=== PATIENT | female | born 1975 | race African-American/Black ===

== ENCOUNTER 2017-04-27 19:56 | Inpatient (IN) | payer OTHER ==
[2017-04-27 20:57] VITALS: BMI 24.1
--- NOTE | 2017-04-27 21:20 | HP ---
CIWA Score - CIWA Score Nausea/Vomitin-No Nausea/No Vomiting Muscle Tremors: 4-Moderate,w/Arms Extend Anxiety: 4-Mod. Anxious/Guarded Agitation: 4-Moderately Restless Paroxysmal Sweats: 1-Minimal Palms Moist Orientation: 0-Oriented Tacttile Disturbances: 0-None Auditory Disturbances: 1-Very Mild (self voice = good things bad things) Visual Disturbances: 0-None Headache: 1-Very Mild CIWA-Ar Total Score: 15 Admission ROS S - HPI Chief Complaint: withdrawal sx Allergies/Adverse Reactions: Allergies Allergy/AdvReac Type Severity Reaction Status Date / Time grass pollen Allergy Verified 04/27/17 21:18 History of Present Illness: 41 years old female with long history of alcohol nicotine dependence has seasonal allergy and depression is admitted to detox mass bilaterally breasts diagnosed 09/2016 will follow up with radiologist Exam Limitations: No Limitations - Ebola screening Have you traveled outside of the country in the last 21 days: No Have you had contact with anyone from an Ebola affected area: No Have you been sick,other than usual withdrawal symptoms: No Do you have a fever: No - Review of Systems Constitutional: Changes in sleep, Weight Stable EENT: reports: Cataracts (left eye born), Nose Congestion Respiratory: reports: SOB with Exertion, Productive cough (yellowish) Cardiac: reports: No Symptoms Reported GI: reports: Poor Fluid Intake, Indigestion, Abdominal cramping : reports: No Symptoms Reported Musculoskeletal: reports: Back Pain Integumentary: reports: Rash (back hands neck) Neuro: reports: Tremors Endocrine: reports: Increased Urine Hematology: reports: No Symptoms Reported Psychiatric: reports: Judgement Intact, Orientated x3, Anxious, Depressed Other Systems: Reviewed and Negative Patient History - Patient Medical History Hx Anemia: No Hx Asthma: No Hx Chronic Obstructive Pulmonary Disease (COPD): No Hx Cancer: No Hx Cardiac Disorders: No Hx Congestive Heart Failure: No Hx Hypertension: No Hx Hypercholesterolemia: No Hx Pacemaker: No HX Cerebrovascular Accident: No Hx Seizures: No Hx Dementia: No Hx Diabetes: No Hx Gastrointestinal Disorders: Yes Hx Liver Disease: No Hx Genitourinary Disorders: No Hx Sexually Transmitted Disorders: No Hx Renal Disease (ESRD): No Hx Thyroid Disease: No Hx Human Immunodeficiency Virus (HIV): No Hx Hepatitis C: No Hx Depression: Yes Hx Suicide Attempt: No Hx Bipolar Disorder: No Hx Schizophrenia: No Other Medical History: left eye born with cataract x 1 surgery = not working - Patient Surgical History Past Surgical History: No - PPD History Previous Implant?: Yes Documented Results: Negative w/o proof Implanted On Prior [facility] Admission?: No PPD to be Administered?: Yes - Reproductive History Patient is a Female of Child Bearing Age (11 -55 yrs old): Yes Last Menstrual Period: 04/27/17 Patient : No - Smoking Cessation Smoking history: Current every day smoker Have you smoked in the past 12 months: Yes Aproximately how many cigarettes per day: 20 Cigars Per Day: 0 Hx Chewing Tobacco Use: No Initiated information on smoking cessation: Yes 'Breaking Loose' booklet given: 04/27/17 - Substance & Tx. History Hx Alcohol Use: Yes Hx Substance Use: Yes Substance Use Type: Alcohol, Cocaine Hx Substance Use Treatment: No - Substances Abused Alcohol Route: Oral Frequency: Daily Amount used: 4 quarts vodka + beer 40ozx5 Age of first use: 13 Date of Last Use: 04/27/17 Cocaine Route: Inhalation Frequency: Daily Amount used: 300$ Age of first use: 19 Date of Last Use: 04/27/17 Family Disease History - Family Disease History Family Disease History: Diabetes: Father, Heart Disease: Mother, CA: Mother Admission Physical Exam BHS - Vital Signs Vital Signs: Vital Signs - 24 hr 04/27/17 20:53 Temperature 96.8 F L Pulse Rate 80 Respiratory 18 Rate Blood Pressure 130/98 - Physical General Appearance: Yes: Nourished, Appropriately Dressed, Mild Distress, Tremorous, Irritable, Sweating, Anxious HEENTM: Yes: Hearing grossly Normal, Normal ENT Inspection, Normocephalic, Normal Voice, Nasal Congestion, Other Respiratory: Yes: Chest Non-Tender, Lungs Clear, Normal Breath Sounds, No Respiratory Distress, No Accessory Muscle Use Neck: Yes: Supple, Trachea in good position Breast: Yes: Breasts Symetrical Cardiology: Yes: Regular Rhythm, Regular Rate, S1, S2 Abdominal: Yes: Normal Bowel Sounds, Non Tender, Soft Genitourinary: Yes: Within Normal Limits Back: Yes: Normal Inspection Musculoskeletal: Yes: full range of Motion, Gait Steady Extremities: Yes: Normal Inspection, Normal Range of Motion, Non-Tender, Tremors Neurological: Yes: Fully Oriented, Alert, Motor Strength 5/5, Normal Response, Depressed Affect Integumentary: Yes: Warm Lymphatic: Yes: Within Normal Limits - Diagnostic (1) Alcohol dependence with uncomplicated withdrawal Current Visit: Yes Status: Acute (2) GERD (gastroesophageal reflux disease) Current Visit: Yes Status: Chronic Qualifiers: Esophagitis presence: without esophagitis Qualified Code(s): K21.9 - Gastro-esophageal reflux disease without esophagitis; K21.9 - Gastro- esophageal reflux disease without esophagitis; K21.9 - Gastro-esophageal reflux disease without esophagitis (3) Dry skin dermatitis Current Visit: Yes Status: Chronic (4) Depression (emotion) Current Visit: Yes Status: Suspected Qualifiers: Depression Type: dysthymia Qualified Code(s): F34.1 - Dysthymic disorder; F34.1 - Dysthymic disorder; F34.1 - Dysthymic disorder Cleared for Admission S - Detox or Rehab [facility] Level of Care: Medically Managed Detox Regimen/Protocol: Librium [facility] Breath Alcohol Content Breath Alcohol Content: 0 Urine Pregancy Test - Result Urine Test Results: Negative- NO Line Present Urine Drug Screen - Results Drug Screen Negative: No Urine Drug Screen Results: DANIEL-Cocaine
[2017-04-27] MEDS ORDERED: guaiFENesin/D-METHORPHAN HB 10 ML UNIT-DOSE CUPS PO PRN (21:37)
[2017-04-27] MEDS ORDERED: MAG HYDROX/AL HYDROX/SIMETH 30 ML UNIT-DOSE CUP PO PRN (21:37)
[2017-04-27] MEDS ORDERED: chlordiazePOXIDE HCL 25 MG CAPSULE PO PRN (21:37)
[2017-04-27] MEDS ORDERED: MENTHOL/PHENOL 1 EACH UD MM PRN (21:37)
[2017-04-27] MEDS ORDERED: MAGNESIUM CITRATE 300 ML BOTTLE PO PRN (21:37)
[2017-04-27] MEDS ORDERED: LOPERAMIDE HCL 2 MG CAPSULE PO PRN (21:37)
[2017-04-27] MEDS ORDERED: P-EPHED 60MG/TRIPROLIDI 2.5MG TABLET PO PRN (21:37)
[2017-04-28] MEDS: chlordiazePOXIDE HCL 25 MG CAPSULE PO SCH ×5 (01:09→22:49)
[2017-04-28] MEDS: LORATADINE 10 MG TABLET PO SCH ×2 (01:11→22:49)
[2017-04-28] MEDS: RANITIDINE HCL 150 MG TABLET (FP) PO SCH ×3 (01:12→22:49)
[2017-04-28] MEDS: ACETAMINOPHEN 325 MG TABLET (FP) PO PRN (01:13)
[2017-04-28] MEDS: THIAMINE HCL 100 MG TABLET (FP) PO SCH ×2 (01:19→22:49)
[2017-04-28] MEDS: SODIUM CHLORIDE NASAL SPRAY 44 ML BOTTLE NS SCH ×4 (07:41→22:52)
[2017-04-28] MEDS: MINERAL OIL/PETROLAT/WATER TOPICAL CREAM 113 GM JAR TP SCH ×2 (07:47→22:49)
[2017-04-28 10:18] LABS: MCH 29.5 pg (25.7-33.7); MCHC 32.6 g/dl (32.0-36.0); MEAN CELL VOLUME 90.5 fl (80-96); MEAN PLT VOLUME 10.4 fl (7.5-11.1); PLATELET COUNT 148 K/MM3 (134-434); RDW 14.2 % (11.6-15.6)
--- NOTE | 2017-04-28 10:23 | PN ---
BHS CIWA - CIWA Score Nausea/Vomitin Muscle Tremors: 3 Anxiety: 3 Agitation: 2 Paroxysmal Sweats: 1-Minimal Palms Moist Orientation: 0-Oriented Tacttile Disturbances: 1-Very Mild Itch/Numbness Auditory Disturbances: 1-Very Mild Visual Disturbances: 0-None Headache: 2-Mild CIWA-Ar Total Score: 16 BHS Progress Note (SOAP) Subjective: alert,irritable,anxious,interrupted sleep,tremor Objective: 04/28/17 10:21 Vital Signs Temperature 97.1 F L 04/28/17 09:56 Pulse Rate 70 04/28/17 09:56 Respiratory Rate 17 04/28/17 09:56 Blood Pressure 110/88 04/28/17 09:56 O2 Sat by Pulse Oximetry (%) ekg sinus bradycardia 59/min no chest pain,no sob,no dizziness labs pending Assessment: 04/28/17 10:23 withdrawal symptom Plan: continue detox
[2017-04-28 10:31] LABS: ANION GAP 6 (8-16); CALCIUM 8.5 mg/dL (8.5-10.1); CO2 28 mmol/L (21-32); CREATININE 0.9 mg/dL (0.55-1.02); GLUCOSE,RANDOM 79 mg/dL (74-106); SGOT/AST 32 U/L (15-37); SGPT/ALT 34 U/L (12-78)
[2017-04-28 10:34] LABS: ALK PHOS 89 U/L (45-117); BILIRUBIN,TOTAL 0.6 mg/dL (0.2-1.0)
[2017-04-28] MEDS: NICOTINE 21 MG/24 HOURS TOPICAL PATCH TD SCH (10:37)
[2017-04-28] MEDS: PRENATAL VITAMINS W/ FOLIC ACID TABLET (FP) PO SCH (10:37)
[2017-04-28] MEDS: FLUOCINONIDE 0.05% CREAM (15 GM TUBE) TP SCH ×2 (10:50→22:50)
[2017-04-28 14:36] LABS: URINE APPEARANCE CLEAR; URINE BILIRUBIN NEGATIVE (NEGATIVE); URINE BLOOD 3+ (NEGATIVE); URINE COLOR LT. YELLOW; URINE GLUCOSE (UA) NEGATIVE (NEGATIVE); URINE KETONE NEGATIVE (NEGATIVE); URINE NITRITE NEGATIVE (NEGATIVE); URINE PROTEIN NEGATIVE (NEGATIVE); URINE UROBILINOGEN 0.2 mg/dL (0.2-1.0)
[2017-04-28 16:04] LABS: URINE MUCUS RARE; URINE RBC 7 /hpf (0-3); URINE WBC <1 /hpf (3-5)
--- NOTE | 2017-04-28 17:24 | EKG ---
Test Reason : Blood Pressure : / mmHG Vent. Rate : 059 BPM Atrial Rate : 059 BPM P-R Int : 150 ms QRS Dur : 066 ms QT Int : 416 ms P-R-T Axes : 028 016 028 degrees QTc Int : 411 ms SINUS BRADYCARDIA NO PREVIOUS ECGS AVAILABLE Confirmed by VIPUL PENALOZA MD ([id number]) on 04/28/2017 5:24:25 PM Referred By: Confirmed By:VIPUL PENALOZA MD
[2017-04-28 18:39] LABS: URINE LEUK ESTERASE Negative (NEGATIVE)
[2017-04-28] MEDS: NICOTINE POLACRILEX 4 MG GUM BC PRN (18:59)
[2017-04-28] MEDS: MAGNESIUM HYDROX 2400MG/30ML ORAL SUSPENSION 30 ML CUP PO PRN (19:11)
[2017-04-29] MEDS: chlordiazePOXIDE HCL 25 MG CAPSULE PO SCH ×3 (06:00→18:05)
[2017-04-29] MEDS: SODIUM CHLORIDE NASAL SPRAY 44 ML BOTTLE NS SCH ×3 (06:01→22:41)
[2017-04-29] MEDS: ACETAMINOPHEN 325 MG TABLET (FP) PO PRN (06:08)
[2017-04-29] MEDS: RANITIDINE HCL 150 MG TABLET (FP) PO SCH ×2 (10:34→22:41)
[2017-04-29] MEDS: PRENATAL VITAMINS W/ FOLIC ACID TABLET (FP) PO SCH (10:34)
[2017-04-29] MEDS: FLUOCINONIDE 0.05% CREAM (15 GM TUBE) TP SCH (10:35)
[2017-04-29] MEDS: NICOTINE 21 MG/24 HOURS TOPICAL PATCH TD SCH (10:37)
--- NOTE | 2017-04-29 11:17 | PN ---
S CIWA - CIWA Score Nausea/Vomitin Muscle Tremors: 3 Anxiety: 3 Agitation: 2 Paroxysmal Sweats: 1-Minimal Palms Moist Orientation: 0-Oriented Tacttile Disturbances: 1-Very Mild Itch/Numbness Auditory Disturbances: 1-Very Mild Visual Disturbances: 0-None Headache: 2-Mild CIWA-Ar Total Score: 16 BHS Progress Note (SOAP) Subjective: ALERT,IRRITABLE,ANXIOUS,INTERRUPTED SLEEP,PAIN IN THE BODY Objective: 04/29/17 11:16 Vital Signs Temperature 98.3 F 04/29/17 10:00 Pulse Rate 86 04/29/17 10:00 Respiratory Rate 18 04/29/17 10:00 Blood Pressure 143/86 04/29/17 10:00 O2 Sat by Pulse Oximetry (%) Laboratory Last Values WBC 6.0 K/mm3 (4.0-10.0) 04/28/17 07:00 RBC 3.99 M/mm3 (3.60-5.2) 04/28/17 07:00 Hgb 11.8 GM/dL (10.7-15.3) 04/28/17 07:00 Hct 36.1 % (32.4-45.2) 04/28/17 07:00 MCV 90.5 fl (80-96) 04/28/17 07:00 MCH 29.5 pg (25.7-33.7) 04/28/17 07:00 MCHC 32.6 g/dl (32.0-36.0) 04/28/17 07:00 RDW 14.2 % (11.6-15.6) 04/28/17 07:00 Plt Count 148 K/MM3 (134-434) 04/28/17 07:00 MPV 10.4 fl (7.5-11.1) 04/28/17 07:00 Sodium 141 mmol/L (136-145) 04/28/17 07:00 Potassium 4.3 mmol/L (3.5-5.1) 04/28/17 07:00 Chloride 107 mmol/L (98-107) 04/28/17 07:00 Carbon Dioxide 28 mmol/L (21-32) 04/28/17 07:00 Anion Gap 6 (8-16) L 04/28/17 07:00 BUN 17 mg/dL (7-18) 04/28/17 07:00 Creatinine 0.9 mg/dL (0.55-1.02) 04/28/17 07:00 Creat Clearance w eGFR > 60 (>60) 04/28/17 07:00 Random Glucose 79 mg/dL (74-106) 04/28/17 07:00 Hemoglobin A1c % 5.0 % (4.8-6.0) 04/28/17 07:00 Calcium 8.5 mg/dL (8.5-10.1) 04/28/17 07:00 Total Bilirubin 0.6 mg/dL (0.2-1.0) 04/28/17 07:00 AST 32 U/L (15-37) 04/28/17 07:00 ALT 34 U/L (12-78) 04/28/17 07:00 Alkaline Phosphatase 89 U/L (45-117) 04/28/17 07:00 Total Protein 6.0 g/dl (6.4-8.2) L 04/28/17 07:00 Albumin 3.0 g/dl (3.4-5.0) L 04/28/17 07:00 Urine Color Lt. yellow 04/28/17 10:40 Urine Appearance Clear 04/28/17 10:40 Urine pH 7.0 (5.0-8.0) 04/28/17 10:40 Ur Specific [place] 1.015 (1.005-1.025) 04/28/17 10:40 Urine Protein Negative (NEGATIVE) 04/28/17 10:40 Urine Glucose (UA) Negative (NEGATIVE) 04/28/17 10:40 Urine Ketones Negative (NEGATIVE) 04/28/17 10:40 Urine Blood 3+ (NEGATIVE) H 04/28/17 10:40 Urine Nitrite Negative (NEGATIVE) 04/28/17 10:40 Urine Bilirubin Negative (NEGATIVE) 04/28/17 10:40 Urine Urobilinogen 0.2 mg/dL (0.2-1.0) 04/28/17 10:40 Ur Leukocyte Esterase Negative (NEGATIVE) 04/28/17 10:40 Urine RBC 7 /hpf (0-3) 04/28/17 10:40 Urine WBC <1 /hpf (3-5) 04/28/17 10:40 Ur Epithelial Cells Rare /hpf (FEW) 04/28/17 10:40 Urine Mucus Rare 04/28/17 10:40 RPR Titer Nonreactive (NONREACTIVE) 04/28/17 07:00 Hepatitis C Antibody <0.1 s/co ratio (0.0-0.9) 04/27/17 07:00 Assessment: 04/29/17 11:17 WITHDRAWAL SYMPTOM Plan: CONTINUE DETOX
[2017-04-29] MEDS: MAGNESIUM HYDROX 2400MG/30ML ORAL SUSPENSION 30 ML CUP PO PRN (18:10)
[2017-04-29] MEDS: FLUOCINONIDE 0.05% CREAM (60 GM TUBE) TP SCH (22:39)
[2017-04-29] MEDS: chlordiazePOXIDE 5 MG CAPSULE PO SCH (22:40)
[2017-04-29] MEDS: THIAMINE HCL 100 MG TABLET (FP) PO SCH (22:40)
[2017-04-29] MEDS: MINERAL OIL/PETROLAT/WATER TOPICAL CREAM 113 GM JAR TP SCH (22:41)
[2017-04-29] MEDS: LORATADINE 10 MG TABLET PO SCH (22:41)
[2017-04-29] MEDS: diphenhydrAMINE HCL 50 MG CAPSULE PO PRN (22:41)
[2017-04-30] MEDS: chlordiazePOXIDE 5 MG CAPSULE PO SCH ×3 (05:31→17:23)
[2017-04-30] MEDS: SODIUM CHLORIDE NASAL SPRAY 44 ML BOTTLE NS SCH ×3 (06:33→22:17)
[2017-04-30] MEDS: NICOTINE 21 MG/24 HOURS TOPICAL PATCH TD SCH (10:43)
[2017-04-30] MEDS: PRENATAL VITAMINS W/ FOLIC ACID TABLET (FP) PO SCH (10:43)
[2017-04-30] MEDS: RANITIDINE HCL 150 MG TABLET (FP) PO SCH ×2 (10:43→22:18)
[2017-04-30] MEDS: FLUOCINONIDE 0.05% CREAM (60 GM TUBE) TP SCH ×2 (10:44→22:19)
[2017-04-30] MEDS: ACETAMINOPHEN 325 MG TABLET (FP) PO PRN (10:48)
--- NOTE | 2017-04-30 11:36 | PN ---
BHS Progress Note (SOAP) Subjective: ALERT,IRRITABLE,ANXIOUS,INTERRUPTED SLEEP Objective: 04/30/17 11:36 Vital Signs Temperature 100.2 F H 04/30/17 10:18 Pulse Rate 85 04/30/17 10:18 Respiratory Rate 16 04/30/17 10:18 Blood Pressure 117/77 04/30/17 10:18 O2 Sat by Pulse Oximetry (%) Assessment: 04/30/17 11:36 WITHDRAWAL SYMPTOM Plan: CONTINUE DETOX
[2017-04-30] MEDS: MAGNESIUM HYDROX 2400MG/30ML ORAL SUSPENSION 30 ML CUP PO PRN (17:25)
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
[2017-04-30] MEDS: LORATADINE 10 MG TABLET PO SCH (22:18)
[2017-04-30] MEDS: chlordiazePOXIDE HCL 10 MG CAPSULE PO SCH (22:18)
[2017-04-30] MEDS: THIAMINE HCL 100 MG TABLET (FP) PO SCH (22:18)
[2017-04-30] MEDS: MINERAL OIL/PETROLAT/WATER TOPICAL CREAM 113 GM JAR TP SCH (22:20)
[2017-04-30] MEDS: diphenhydrAMINE HCL 50 MG CAPSULE PO PRN (22:22)
[2017-05-01] MEDS: SODIUM CHLORIDE NASAL SPRAY 44 ML BOTTLE NS SCH (06:25)
[2017-05-01] MEDS: chlordiazePOXIDE HCL 10 MG CAPSULE PO SCH ×2 (06:25→10:27)
[2017-05-01] MEDS: RANITIDINE HCL 150 MG TABLET (FP) PO SCH (10:27)
[2017-05-01] MEDS: PRENATAL VITAMINS W/ FOLIC ACID TABLET (FP) PO SCH (10:27)
[2017-05-01] MEDS: NICOTINE 21 MG/24 HOURS TOPICAL PATCH TD SCH (10:27)
[2017-05-01] MEDS: FLUOCINONIDE 0.05% CREAM (60 GM TUBE) TP SCH (10:27)
--- NOTE | 2017-05-01 10:45 | DS ---
[facility] Detox Discharge Summary Admission Date: 04/27/17 Discharge Date: 05/01/17 - History Present History: Alcohol Dependence, Cocaine Dependence Additional Comments: FOLLOW UP WITH AFTER CARE PROGRAM ARRANGEMENT Pertinent Past History: GERD CONSTIPATION INSOMNIA - Physical Exam Results Vital Signs: Vital Signs Temperature 97.2 F L 05/01/17 06:27 Pulse Rate 81 05/01/17 06:27 Respiratory Rate 18 05/01/17 06:27 Blood Pressure 106/68 05/01/17 06:27 O2 Sat by Pulse Oximetry (%) Pertinent Admission Physical Exam Findings: WITHDRAWAL SYMPTOM - Treatment Hospital Course: Detox Protocol Followed, Detoxed Safely, Responded well, Discharged Condition Good, Rehab Referral Accepted Patient has Accepted a Rehab Referral to: [facility] - Medication Discharge Medications: Ambulatory Orders NK [No Known Home Medication] 04/28/17 - Diagnosis (1) Alcohol dependence with uncomplicated withdrawal Current Visit: Yes Status: Acute (2) Cocaine dependence Current Visit: Yes Status: Acute (3) Insomnia Current Visit: Yes Status: Acute (4) Substance induced mood disorder Current Visit: Yes Status: Acute (5) GERD (gastroesophageal reflux disease) Current Visit: Yes Status: Chronic Qualifiers: Esophagitis presence: without esophagitis Qualified Code(s): K21.9 - Gastro-esophageal reflux disease without esophagitis; K21.9 - Gastro- esophageal reflux disease without esophagitis; K21.9 - Gastro-esophageal reflux disease without esophagitis - AMA Did Patient Leave Against Medical Advice: No
[2017-05-01 11:01] VITALS: BP 110/76; PULSE 109; TEMP 98.2
[2017-05-01] MEDS: NICOTINE POLACRILEX 4 MG GUM BC PRN (11:09)
[2017-05-01 12:02] LABS: HIV 1 & 2 AB NEGATIVE; HIV 1 AGp24 NEGATIVE
== END 2017-05-01 11:26 | disposition other institution (70) | DRG 774 ==
LOC: YASAS 19:56 → Y6N 23:43
PROVIDERS: ADMIT Internal Medicine; ATTEND Internal Medicine
PROC: HZ2ZZZZ Detoxification Services for Substance Abuse Treatment (ICD-10-PCS; principal; 2017-04-27)
DX: F10.230 Alcohol dependence with withdrawal, uncomplicated (principal); F14.20 Cocaine dependence, uncomplicated; F17.210 Nicotine dependence, cigarettes, uncomplicated; F19.24 Other psychoactive substance dependence with psychoactive substance-induced mood disorder; F34.1 Dysthymic disorder; K21.9 Gastro-esophageal reflux disease without esophagitis; G47.00 Insomnia, unspecified; L85.3 Xerosis cutis; H54.40 Blindness, one eye, unspecified eye; Z91.048 Other nonmedicinal substance allergy status
CPT/HCPCS: 36415; 80053; 81003; 81015; 83036; 85027; 86593; 86803; 87389; 93005; 93010

== ENCOUNTER 2017-05-01 11:30 | Inpatient (IN) | payer OTHER ==
[2017-05-01] MEDS ORDERED: MENTHOL/PHENOL 1 EACH UD MM PRN (12:41)
[2017-05-01] MEDS ORDERED: MAGNESIUM CITRATE 300 ML BOTTLE PO PRN (12:41)
[2017-05-01] MEDS ORDERED: LOPERAMIDE HCL 2 MG CAPSULE PO PRN (12:41)
[2017-05-01] MEDS ORDERED: guaiFENesin/D-METHORPHAN HB 10 ML UNIT-DOSE CUPS PO PRN (12:41)
[2017-05-01] MEDS ORDERED: ACETAMINOPHEN 325 MG TABLET (FP) PO PRN (12:41)
[2017-05-01] MEDS ORDERED: P-EPHED 60MG/TRIPROLIDI 2.5MG TABLET PO PRN (12:41)
--- NOTE | 2017-05-01 12:48 | HP ---
[facility] Rehab Assess/Revision - Admission History Admitted to Rehab from: [facility] Date of Admission to Rehab: 05/01/17 - Vital signs Vital Signs: Vital Signs Period Temp Pulse Resp BP Sys/Watts Pulse Ox Last 24 Hr 98.3 F 80 20 118/80 - Findings Detox History & Physical reviewed: Yes Concur with findings: Yes Comments/Additional Findings: FOR REHAB PROTOCOL Inpatient Rehab Admission - Initial Determination Are CD services needed?: Yes Free of communicable disease: Yes Not in need of hospitalization: Yes - Rehab Admission Criteria Previous failed treatment: Yes Poor recovery environment: Yes Comorbidities: Yes Patient is meeting Inpatient Rehab admission criteria:: Yes
[2017-05-01] MEDS: THIAMINE HCL 100 MG TABLET (FP) PO SCH (21:29)
[2017-05-01] MEDS: SODIUM CHLORIDE NASAL SPRAY 44 ML BOTTLE NS SCH (21:29)
[2017-05-01] MEDS: diphenhydrAMINE HCL 50 MG CAPSULE PO PRN (21:30)
[2017-05-01] MEDS: FLUOCINONIDE 0.05% TOP OINT (60 GM TUBE) TP SCH (21:31)
[2017-05-02] MEDS ORDERED: PT OWN MED DRAWER 7, Y5N ONE (08:37)
[2017-05-02] MEDS: FLUOCINONIDE 0.05% TOP OINT (60 GM TUBE) TP SCH ×2 (10:09→21:20)
[2017-05-02] MEDS: SODIUM CHLORIDE NASAL SPRAY 44 ML BOTTLE NS SCH ×2 (10:09→21:20)
[2017-05-02] MEDS: PRENATAL VITAMINS W/ FOLIC ACID TABLET (FP) PO SCH (10:10)
--- NOTE | 2017-05-02 11:54 | HP ---
Psychiatrist Admission - Data Date of interview: 05/02/17 Admission source: [address] [place] [address] Identifying data: This is the first admission to [address] [place] [address] rehabilitation for this 41 years old [place] born sing[place] female mother of 1 grown son,resides with parents,supported by Food stampts. Medical History: GERD,Dry skin dermatitis,L eye blindness(Catharact).. Psychiatric History: denies Physical/Sexual Abuse/Trauma History: not willing to discuss Vital Signs: Vital Signs - 24 hr 05/01/17 05/02/17 05/02/17 12:37 00:30 03:30 Temperature 98.3 F Pulse Rate 80 Respiratory 20 16 16 Rate Blood Pressure 118/80 05/02/17 07:27 Temperature 97.8 F Pulse Rate 68 Respiratory 18 Rate Blood Pressure 96/67 Allergies/Adverse Reactions: Allergies Allergy/AdvReac Type Severity Reaction Status Date / Time grass pollen Allergy Verified 04/27/17 21:18 Date of last physical exam: 05/02/17 Concur with the findings of this exam: Yes - Substance Abuse/Tx History Hx Alcohol Use: Yes (drinking since 13 yo,4 quarts of vodka,beer 5 x 40 oz daily ) Hx Substance Use: Yes (crack since 19 yo ,$300 daily,marijuana since 14 yo) Substance Use Type: Alcohol, Cocaine, Marijuana Hx Substance Use Treatment: Yes (this is her first inpatient rehabilitation treatment) Mental Status Exam - Mental Status Exam Alert and Oriented to: Time, Place, Person Cognitive Function: Grossly Intact Patient Appearance: Unkempt Mood: Sad, Anxious Affect: Appropriate, Mood Congruent, Labile Patient Behavior: Restless, Cooperative Speech Pattern: Clear Voice Loudness: Normal Thought Process: Goal Oriented Thought Disorder: Not Present Hallucinations: Denies Suicidal Ideation: Denies Homicidal Ideation: Denies Insight/Judgement: Fair Sleep: Fair Appetite: Good Muscle strength/Tone: Normal Gait/Station: Normal Psychiatric Findings - Problem List ([place] 1, 2,3) (1) Cocaine dependence Current Visit: Yes Status: Chronic (2) Marihuana dependence Current Visit: Yes Status: Chronic (3) Substance induced mood disorder Current Visit: Yes Status: Chronic (4) Dry skin dermatitis Current Visit: Yes Status: Chronic (5) GERD (gastroesophageal reflux disease) Current Visit: Yes Status: Chronic Qualifiers: Esophagitis presence: without esophagitis Qualified Code(s): K21.9 - Gastro-esophageal reflux disease without esophagitis; K21.9 - Gastro- esophageal reflux disease without esophagitis; K21.9 - Gastro-esophageal reflux disease without esophagitis (6) Alcohol dependence Current Visit: Yes Status: Chronic - Initial Treatment Plan Initial Treatment Plan: Trazodone 100 mg po hs.Will monitor progress.
[2017-05-02] MEDS: LORATADINE 10 MG TABLET PO SCH (13:21)
[2017-05-02] MEDS: THIAMINE HCL 100 MG TABLET (FP) PO SCH (21:20)
[2017-05-02] MEDS: traZODone HCL 100 MG TABLET (FP) PO SCH (21:20)
[2017-05-03] MEDS: hydrOXYzine PAMOATE 50 MG CAPSULE (FP) PO PRN ×2 (06:38→17:34)
[2017-05-03] MEDS ORDERED: PT OWN MED DRAWER 7, Y5N ONE ×3 (08:38→20:19)
[2017-05-03] MEDS: LORATADINE 10 MG TABLET PO SCH (11:05)
[2017-05-03] MEDS: SODIUM CHLORIDE NASAL SPRAY 44 ML BOTTLE NS SCH ×2 (11:06→21:28)
[2017-05-03] MEDS: FLUOCINONIDE 0.05% TOP OINT (60 GM TUBE) TP SCH ×2 (11:06→21:46)
[2017-05-03] MEDS: PRENATAL VITAMINS W/ FOLIC ACID TABLET (FP) PO SCH (11:06)
[2017-05-03] MEDS: CYCLOBENZAPRINE HCL 10 MG TABLET (FP) PO SCH ×2 (15:46→21:28)
[2017-05-03] MEDS: cloNIDine HCL 0.1 MG TABLET PO SCH ×2 (15:46→21:29)
[2017-05-03] MEDS: MAGNESIUM HYDROX 2400MG/30ML ORAL SUSPENSION 30 ML CUP PO PRN (18:10)
[2017-05-03] MEDS ORDERED: NICOTINE POLACRILEX 4 MG GUM BUC PRN (18:17)
[2017-05-03] MEDS: NICOTINE 21 MG/24 HOURS TOPICAL PATCH TD PRN (18:21)
[2017-05-03] MEDS: traZODone HCL 100 MG TABLET (FP) PO SCH (21:29)
[2017-05-03] MEDS: THIAMINE HCL 100 MG TABLET (FP) PO SCH (21:29)
[2017-05-03] MEDS: diphenhydrAMINE HCL 50 MG CAPSULE PO PRN (21:29)
[2017-05-04] MEDS: CYCLOBENZAPRINE HCL 10 MG TABLET (FP) PO SCH ×3 (06:36→21:31)
[2017-05-04] MEDS: LORATADINE 10 MG TABLET PO SCH (10:15)
[2017-05-04] MEDS: cloNIDine HCL 0.1 MG TABLET PO SCH ×2 (10:15→21:31)
[2017-05-04] MEDS: PRENATAL VITAMINS W/ FOLIC ACID TABLET (FP) PO SCH (10:15)
[2017-05-04] MEDS: SODIUM CHLORIDE NASAL SPRAY 44 ML BOTTLE NS SCH ×2 (10:17→21:31)
[2017-05-04] MEDS: FLUOCINONIDE 0.05% TOP OINT (60 GM TUBE) TP SCH ×2 (10:18→21:32)
[2017-05-04] MEDS: COLLOIDAL OATMEAL 1 BAR EACH TP PRN (13:11)
[2017-05-04] MEDS: hydrOXYzine PAMOATE 50 MG CAPSULE (FP) PO PRN (15:44)
[2017-05-04] MEDS: THIAMINE HCL 100 MG TABLET (FP) PO SCH (21:31)
[2017-05-04] MEDS: traZODone HCL 100 MG TABLET (FP) PO SCH (21:31)
[2017-05-04] MEDS: diphenhydrAMINE HCL 50 MG CAPSULE PO PRN (21:35)
[2017-05-05] MEDS: CYCLOBENZAPRINE HCL 10 MG TABLET (FP) PO SCH ×3 (06:16→21:32)
[2017-05-05] MEDS ORDERED: PT OWN MED DRAWER 7, Y5N ONE (08:59)
[2017-05-05] MEDS: LORATADINE 10 MG TABLET PO SCH (10:14)
[2017-05-05] MEDS: PRENATAL VITAMINS W/ FOLIC ACID TABLET (FP) PO SCH (10:14)
[2017-05-05] MEDS: SODIUM CHLORIDE NASAL SPRAY 44 ML BOTTLE NS SCH ×2 (10:15→21:35)
[2017-05-05] MEDS: FLUOCINONIDE 0.05% TOP OINT (60 GM TUBE) TP SCH ×2 (10:15→21:36)
[2017-05-05] MEDS: hydrOXYzine PAMOATE 50 MG CAPSULE (FP) PO PRN (10:18)
[2017-05-05] MEDS: cloNIDine HCL 0.1 MG TABLET PO SCH (10:19)
[2017-05-05] MEDS: NICOTINE 21 MG/24 HOURS TOPICAL PATCH TD PRN (10:26)
[2017-05-05] MEDS: MAG HYDROX/AL HYDROX/SIMETH 30 ML UNIT-DOSE CUP PO PRN (13:45)
[2017-05-05] MEDS ORDERED: NICOTINE POLACRILEX 4 MG GUM BUC ONE (15:14)
[2017-05-05] MEDS: IBUPROFEN 400 MG TABLET (FP) PO PRN (17:12)
[2017-05-05] MEDS: THIAMINE HCL 100 MG TABLET (FP) PO SCH (21:32)
[2017-05-05] MEDS: diphenhydrAMINE HCL 50 MG CAPSULE PO PRN (21:34)
[2017-05-06] MEDS: CYCLOBENZAPRINE HCL 10 MG TABLET (FP) PO SCH ×3 (06:30→21:23)
[2017-05-06] MEDS: LORATADINE 10 MG TABLET PO SCH (10:14)
[2017-05-06] MEDS: PRENATAL VITAMINS W/ FOLIC ACID TABLET (FP) PO SCH (10:14)
[2017-05-06] MEDS: FLUOCINONIDE 0.05% TOP OINT (60 GM TUBE) TP SCH ×2 (10:15→21:24)
[2017-05-06] MEDS: SODIUM CHLORIDE NASAL SPRAY 44 ML BOTTLE NS SCH ×2 (10:15→21:24)
[2017-05-06] MEDS: NICOTINE 21 MG/24 HOURS TOPICAL PATCH TD SCH (10:15)
[2017-05-06] MEDS: hydrOXYzine PAMOATE 50 MG CAPSULE (FP) PO PRN (10:17)
[2017-05-06] MEDS: NICOTINE POLACRILEX 2 MG GUM BUC PRN (10:17)
[2017-05-06] MEDS: THIAMINE HCL 100 MG TABLET (FP) PO SCH (21:24)
[2017-05-06] MEDS ORDERED: PT OWN MED DRAWER 7, Y5N ONE (22:30)
[2017-05-07] MEDS: CYCLOBENZAPRINE HCL 10 MG TABLET (FP) PO SCH ×3 (06:24→21:21)
[2017-05-07] MEDS: hydrOXYzine PAMOATE 50 MG CAPSULE (FP) PO PRN (06:25)
[2017-05-07] MEDS ORDERED: PT OWN MED DRAWER 7, Y5N ONE ×2 (08:09→21:24)
[2017-05-07] MEDS: FLUOCINONIDE 0.05% TOP OINT (60 GM TUBE) TP SCH ×2 (09:33→21:23)
[2017-05-07] MEDS: LORATADINE 10 MG TABLET PO SCH (09:33)
[2017-05-07] MEDS: NICOTINE 21 MG/24 HOURS TOPICAL PATCH TD SCH (09:33)
[2017-05-07] MEDS: SODIUM CHLORIDE NASAL SPRAY 44 ML BOTTLE NS SCH ×2 (09:34→21:23)
[2017-05-07] MEDS: PRENATAL VITAMINS W/ FOLIC ACID TABLET (FP) PO SCH (09:34)
[2017-05-07] MEDS: IBUPROFEN 400 MG TABLET (FP) PO PRN (09:36)
[2017-05-07] MEDS: THIAMINE HCL 100 MG TABLET (FP) PO SCH (21:22)
[2017-05-07] MEDS: diphenhydrAMINE HCL 50 MG CAPSULE PO PRN (21:24)
[2017-05-08] MEDS: CYCLOBENZAPRINE HCL 10 MG TABLET (FP) PO SCH ×3 (06:56→21:48)
[2017-05-08] MEDS: hydrOXYzine PAMOATE 50 MG CAPSULE (FP) PO PRN (06:56)
[2017-05-08] MEDS ORDERED: PT OWN MED DRAWER 7, Y5N ONE (08:15)
[2017-05-08] MEDS: SODIUM CHLORIDE NASAL SPRAY 44 ML BOTTLE NS SCH ×2 (09:45→21:49)
[2017-05-08] MEDS: NICOTINE 21 MG/24 HOURS TOPICAL PATCH TD SCH (09:45)
[2017-05-08] MEDS: LORATADINE 10 MG TABLET PO SCH (09:45)
[2017-05-08] MEDS: PRENATAL VITAMINS W/ FOLIC ACID TABLET (FP) PO SCH (09:45)
[2017-05-08] MEDS: FLUOCINONIDE 0.05% TOP OINT (60 GM TUBE) TP SCH ×2 (09:47→21:49)
[2017-05-08] MEDS: THIAMINE HCL 100 MG TABLET (FP) PO SCH (21:48)
[2017-05-08] MEDS: COLLOIDAL OATMEAL 1 BAR EACH TP PRN (21:51)
[2017-05-08] MEDS: MAG HYDROX/AL HYDROX/SIMETH 30 ML UNIT-DOSE CUP PO PRN (21:51)
[2017-05-09] MEDS: CYCLOBENZAPRINE HCL 10 MG TABLET (FP) PO SCH ×3 (06:46→21:18)
[2017-05-09] MEDS: hydrOXYzine PAMOATE 50 MG CAPSULE (FP) PO PRN (07:55)
[2017-05-09] MEDS: SODIUM CHLORIDE NASAL SPRAY 44 ML BOTTLE NS SCH ×2 (10:07→21:19)
[2017-05-09] MEDS: PRENATAL VITAMINS W/ FOLIC ACID TABLET (FP) PO SCH (10:07)
[2017-05-09] MEDS: LORATADINE 10 MG TABLET PO SCH (10:07)
[2017-05-09] MEDS: NICOTINE 21 MG/24 HOURS TOPICAL PATCH TD SCH (10:08)
[2017-05-09] MEDS: FLUOCINONIDE 0.05% TOP OINT (60 GM TUBE) TP SCH ×2 (10:08→21:19)
[2017-05-09] MEDS: THIAMINE HCL 100 MG TABLET (FP) PO SCH (21:18)
[2017-05-09] MEDS: diphenhydrAMINE HCL 50 MG CAPSULE PO PRN (21:20)
[2017-05-10] MEDS: CYCLOBENZAPRINE HCL 10 MG TABLET (FP) PO SCH ×3 (07:33→21:27)
[2017-05-10] MEDS: LORATADINE 10 MG TABLET PO SCH (10:15)
[2017-05-10] MEDS: NICOTINE 21 MG/24 HOURS TOPICAL PATCH TD SCH (10:15)
[2017-05-10] MEDS: SODIUM CHLORIDE NASAL SPRAY 44 ML BOTTLE NS SCH ×2 (10:15→21:27)
[2017-05-10] MEDS: FLUOCINONIDE 0.05% TOP OINT (60 GM TUBE) TP SCH ×2 (10:15→21:28)
[2017-05-10] MEDS: PRENATAL VITAMINS W/ FOLIC ACID TABLET (FP) PO SCH (10:16)
[2017-05-10] MEDS: THIAMINE HCL 100 MG TABLET (FP) PO SCH (21:27)
[2017-05-10] MEDS: diphenhydrAMINE HCL 50 MG CAPSULE PO PRN (21:28)
[2017-05-11] MEDS: CYCLOBENZAPRINE HCL 10 MG TABLET (FP) PO SCH ×3 (07:36→21:28)
[2017-05-11] MEDS ORDERED: PT OWN MED DRAWER 7, Y5N ONE (08:48)
[2017-05-11] MEDS: NICOTINE 21 MG/24 HOURS TOPICAL PATCH TD SCH (10:33)
[2017-05-11] MEDS: SODIUM CHLORIDE NASAL SPRAY 44 ML BOTTLE NS SCH ×2 (10:33→21:28)
[2017-05-11] MEDS: LORATADINE 10 MG TABLET PO SCH (10:33)
[2017-05-11] MEDS: PRENATAL VITAMINS W/ FOLIC ACID TABLET (FP) PO SCH (10:33)
[2017-05-11] MEDS: FLUOCINONIDE 0.05% TOP OINT (60 GM TUBE) TP SCH ×2 (10:34→21:29)
[2017-05-11] MEDS: diphenhydrAMINE HCL 50 MG CAPSULE PO SCH (21:28)
[2017-05-11] MEDS: THIAMINE HCL 100 MG TABLET (FP) PO SCH (21:28)
[2017-05-12] MEDS: hydrOXYzine PAMOATE 50 MG CAPSULE (FP) PO PRN (06:21)
[2017-05-12] MEDS: CYCLOBENZAPRINE HCL 10 MG TABLET (FP) PO SCH ×3 (06:21→21:33)
[2017-05-12] MEDS ORDERED: PT OWN MED DRAWER 7, Y5N ONE ×3 (08:33→21:36)
[2017-05-12] MEDS: FLUOCINONIDE 0.05% TOP OINT (60 GM TUBE) TP SCH ×2 (10:19→21:35)
[2017-05-12] MEDS: NICOTINE 21 MG/24 HOURS TOPICAL PATCH TD SCH (10:19)
[2017-05-12] MEDS: PRENATAL VITAMINS W/ FOLIC ACID TABLET (FP) PO SCH (10:19)
[2017-05-12] MEDS: LORATADINE 10 MG TABLET PO SCH (10:19)
[2017-05-12] MEDS: SODIUM CHLORIDE NASAL SPRAY 44 ML BOTTLE NS SCH ×2 (10:19→21:33)
[2017-05-12] MEDS: NICOTINE POLACRILEX 2 MG GUM BUC PRN (10:21)
[2017-05-12] MEDS: THIAMINE HCL 100 MG TABLET (FP) PO SCH (21:33)
[2017-05-12] MEDS: diphenhydrAMINE HCL 50 MG CAPSULE PO SCH (21:33)
[2017-05-13] MEDS: CYCLOBENZAPRINE HCL 10 MG TABLET (FP) PO SCH ×3 (06:48→21:36)
[2017-05-13] MEDS: hydrOXYzine PAMOATE 50 MG CAPSULE (FP) PO PRN (06:48)
[2017-05-13] MEDS ORDERED: PT OWN MED DRAWER 7, Y5N ONE ×2 (08:46→13:21)
[2017-05-13] MEDS: SODIUM CHLORIDE NASAL SPRAY 44 ML BOTTLE NS SCH ×2 (10:20→21:35)
[2017-05-13] MEDS: PRENATAL VITAMINS W/ FOLIC ACID TABLET (FP) PO SCH (10:20)
[2017-05-13] MEDS: LORATADINE 10 MG TABLET PO SCH (10:20)
[2017-05-13] MEDS: NICOTINE 21 MG/24 HOURS TOPICAL PATCH TD SCH (10:21)
[2017-05-13] MEDS: NICOTINE POLACRILEX 2 MG GUM BUC PRN ×2 (10:22→13:22)
[2017-05-13] MEDS: FLUOCINONIDE 0.05% TOP OINT (60 GM TUBE) TP SCH ×2 (10:22→21:35)
[2017-05-13] MEDS: ACAMPROSATE CALCIUM 333 MG TABLET.DR PO SCH ×2 (17:58→21:36)
[2017-05-13] MEDS: diphenhydrAMINE HCL 50 MG CAPSULE PO SCH (21:36)
[2017-05-13] MEDS: THIAMINE HCL 100 MG TABLET (FP) PO SCH (21:36)
[2017-05-14] MEDS: ACAMPROSATE CALCIUM 333 MG TABLET.DR PO SCH ×3 (06:49→21:33)
[2017-05-14] MEDS: CYCLOBENZAPRINE HCL 10 MG TABLET (FP) PO SCH ×3 (06:49→21:33)
[2017-05-14] MEDS: hydrOXYzine PAMOATE 50 MG CAPSULE (FP) PO PRN (06:50)
[2017-05-14] MEDS: NICOTINE POLACRILEX 2 MG GUM BUC PRN ×2 (07:56→13:15)
[2017-05-14] MEDS ORDERED: PT OWN MED DRAWER 7, Y5N ONE (08:38)
[2017-05-14] MEDS: PRENATAL VITAMINS W/ FOLIC ACID TABLET (FP) PO SCH (09:50)
[2017-05-14] MEDS: LORATADINE 10 MG TABLET PO SCH (09:50)
[2017-05-14] MEDS: SODIUM CHLORIDE NASAL SPRAY 44 ML BOTTLE NS SCH ×2 (09:51→21:34)
[2017-05-14] MEDS: NICOTINE 21 MG/24 HOURS TOPICAL PATCH TD SCH (09:52)
[2017-05-14] MEDS: FLUOCINONIDE 0.05% TOP OINT (60 GM TUBE) TP SCH ×2 (09:52→21:34)
[2017-05-14] MEDS: COLLOIDAL OATMEAL 1 BAR EACH TP PRN (17:18)
[2017-05-14] MEDS: THIAMINE HCL 100 MG TABLET (FP) PO SCH (21:33)
[2017-05-14] MEDS: diphenhydrAMINE HCL 50 MG CAPSULE PO SCH (21:34)
[2017-05-15] MEDS: CYCLOBENZAPRINE HCL 10 MG TABLET (FP) PO SCH ×3 (06:15→21:35)
[2017-05-15] MEDS: ACAMPROSATE CALCIUM 333 MG TABLET.DR PO SCH ×3 (06:15→21:35)
[2017-05-15] MEDS: hydrOXYzine PAMOATE 50 MG CAPSULE (FP) PO PRN ×2 (06:16→18:10)
[2017-05-15] MEDS ORDERED: PT OWN MED DRAWER 7, Y5N ONE ×2 (08:51→13:53)
[2017-05-15] MEDS: PRENATAL VITAMINS W/ FOLIC ACID TABLET (FP) PO SCH (09:56)
[2017-05-15] MEDS: LORATADINE 10 MG TABLET PO SCH (09:56)
[2017-05-15] MEDS: SODIUM CHLORIDE NASAL SPRAY 44 ML BOTTLE NS SCH ×2 (09:57→21:36)
[2017-05-15] MEDS: FLUOCINONIDE 0.05% TOP OINT (60 GM TUBE) TP SCH ×2 (09:58→21:37)
[2017-05-15] MEDS: NICOTINE POLACRILEX 2 MG GUM BUC PRN ×2 (09:59→13:16)
[2017-05-15] MEDS: NICOTINE 21 MG/24 HOURS TOPICAL PATCH TD SCH (10:00)
[2017-05-15] MEDS: THIAMINE HCL 100 MG TABLET (FP) PO SCH (21:35)
[2017-05-15] MEDS: diphenhydrAMINE HCL 50 MG CAPSULE PO SCH (21:36)
[2017-05-16] MEDS: CYCLOBENZAPRINE HCL 10 MG TABLET (FP) PO SCH ×3 (06:57→21:32)
[2017-05-16] MEDS: ACAMPROSATE CALCIUM 333 MG TABLET.DR PO SCH ×3 (06:57→21:32)
[2017-05-16] MEDS ORDERED: PT OWN MED DRAWER 7, Y5N ONE ×3 (08:46→21:35)
[2017-05-16] MEDS: PRENATAL VITAMINS W/ FOLIC ACID TABLET (FP) PO SCH (10:27)
[2017-05-16] MEDS: LORATADINE 10 MG TABLET PO SCH (10:27)
[2017-05-16] MEDS: FLUOCINONIDE 0.05% TOP OINT (60 GM TUBE) TP SCH ×2 (10:27→21:32)
[2017-05-16] MEDS: SODIUM CHLORIDE NASAL SPRAY 44 ML BOTTLE NS SCH ×2 (10:27→21:32)
[2017-05-16] MEDS: NICOTINE 21 MG/24 HOURS TOPICAL PATCH TD SCH (10:28)
[2017-05-16] MEDS: NICOTINE POLACRILEX 2 MG GUM BUC PRN (13:16)
[2017-05-16] MEDS: diphenhydrAMINE HCL 50 MG CAPSULE PO SCH (21:32)
[2017-05-16] MEDS: THIAMINE HCL 100 MG TABLET (FP) PO SCH (21:32)
[2017-05-17] MEDS: ACAMPROSATE CALCIUM 333 MG TABLET.DR PO SCH ×3 (06:52→21:30)
[2017-05-17] MEDS: CYCLOBENZAPRINE HCL 10 MG TABLET (FP) PO SCH ×3 (06:53→21:30)
[2017-05-17] MEDS: LORATADINE 10 MG TABLET PO SCH (10:17)
[2017-05-17] MEDS: FLUOCINONIDE 0.05% TOP OINT (60 GM TUBE) TP SCH ×2 (10:18→22:20)
[2017-05-17] MEDS: SODIUM CHLORIDE NASAL SPRAY 44 ML BOTTLE NS SCH ×2 (10:18→21:32)
[2017-05-17] MEDS: NICOTINE 21 MG/24 HOURS TOPICAL PATCH TD SCH (10:18)
[2017-05-17] MEDS: NICOTINE POLACRILEX 2 MG GUM BUC PRN (10:19)
[2017-05-17] MEDS: PRENATAL VITAMINS W/ FOLIC ACID TABLET (FP) PO SCH (10:19)
[2017-05-17] MEDS ORDERED: ARTIFICIAL TEARS (POLYVINYL ALCOHOL 1.4%) OPTH DROPS OU ONE (12:41)
[2017-05-17] MEDS: MAGNESIUM HYDROX 2400MG/30ML ORAL SUSPENSION 30 ML CUP PO PRN (17:11)
[2017-05-17] MEDS: diphenhydrAMINE HCL 50 MG CAPSULE PO SCH (21:30)
[2017-05-17] MEDS: THIAMINE HCL 100 MG TABLET (FP) PO SCH (21:30)
[2017-05-18] MEDS: CYCLOBENZAPRINE HCL 10 MG TABLET (FP) PO SCH ×3 (06:33→21:34)
[2017-05-18] MEDS: ACAMPROSATE CALCIUM 333 MG TABLET.DR PO SCH ×3 (06:33→21:34)
[2017-05-18] MEDS ORDERED: PT OWN MED DRAWER 7, Y5N ONE (08:52)
[2017-05-18] MEDS: ARTIFICIAL TEARS (POLYVINYL ALCOHOL 1.4%) OPTH DROPS OU PRN (10:31)
[2017-05-18] MEDS: SODIUM CHLORIDE NASAL SPRAY 44 ML BOTTLE NS SCH ×2 (10:32→21:35)
[2017-05-18] MEDS: NICOTINE 21 MG/24 HOURS TOPICAL PATCH TD SCH (10:32)
[2017-05-18] MEDS: FLUOCINONIDE 0.05% TOP OINT (60 GM TUBE) TP SCH ×2 (10:33→21:35)
[2017-05-18] MEDS: LORATADINE 10 MG TABLET PO SCH (10:33)
[2017-05-18] MEDS: PRENATAL VITAMINS W/ FOLIC ACID TABLET (FP) PO SCH (10:33)
[2017-05-18] MEDS: NICOTINE POLACRILEX 2 MG GUM BUC PRN (13:18)
[2017-05-18] MEDS: THIAMINE HCL 100 MG TABLET (FP) PO SCH (21:34)
[2017-05-18] MEDS: diphenhydrAMINE HCL 50 MG CAPSULE PO SCH (21:35)
[2017-05-19] MEDS: ACAMPROSATE CALCIUM 333 MG TABLET.DR PO SCH ×3 (06:42→21:37)
[2017-05-19] MEDS: CYCLOBENZAPRINE HCL 10 MG TABLET (FP) PO SCH ×3 (06:42→21:39)
[2017-05-19] MEDS: ARTIFICIAL TEARS (POLYVINYL ALCOHOL 1.4%) OPTH DROPS OU PRN ×2 (06:44→13:09)
[2017-05-19] MEDS ORDERED: PT OWN MED DRAWER 7, Y5N ONE ×4 (06:45→15:53)
[2017-05-19] MEDS: SODIUM CHLORIDE NASAL SPRAY 44 ML BOTTLE NS SCH ×2 (10:04→21:39)
[2017-05-19] MEDS: PRENATAL VITAMINS W/ FOLIC ACID TABLET (FP) PO SCH (10:04)
[2017-05-19] MEDS: LORATADINE 10 MG TABLET PO SCH (10:04)
[2017-05-19] MEDS: NICOTINE 21 MG/24 HOURS TOPICAL PATCH TD SCH (10:05)
[2017-05-19] MEDS: FLUOCINONIDE 0.05% TOP OINT (60 GM TUBE) TP SCH ×2 (10:05→21:39)
[2017-05-19] MEDS: NICOTINE POLACRILEX 2 MG GUM BUC PRN ×2 (10:05→21:40)
[2017-05-19] MEDS: MAG HYDROX/AL HYDROX/SIMETH 30 ML UNIT-DOSE CUP PO PRN (10:06)
[2017-05-19] MEDS: diphenhydrAMINE HCL 50 MG CAPSULE PO SCH (21:37)
[2017-05-19] MEDS: THIAMINE HCL 100 MG TABLET (FP) PO SCH (21:37)
[2017-05-20] MEDS: CYCLOBENZAPRINE HCL 10 MG TABLET (FP) PO SCH ×3 (07:08→21:38)
[2017-05-20] MEDS: ACAMPROSATE CALCIUM 333 MG TABLET.DR PO SCH ×3 (07:08→21:38)
[2017-05-20] MEDS ORDERED: MAGNESIUM CITRATE 300 ML BOTTLE PO PRN (07:35)
[2017-05-20] MEDS: PRENATAL VITAMINS W/ FOLIC ACID TABLET (FP) PO SCH (10:35)
[2017-05-20] MEDS: SODIUM CHLORIDE NASAL SPRAY 44 ML BOTTLE NS SCH ×2 (10:36→21:40)
[2017-05-20] MEDS: NICOTINE 21 MG/24 HOURS TOPICAL PATCH TD SCH (10:36)
[2017-05-20] MEDS: LORATADINE 10 MG TABLET PO SCH (10:36)
[2017-05-20] MEDS: FLUOCINONIDE 0.05% TOP OINT (60 GM TUBE) TP SCH ×2 (10:37→21:40)
[2017-05-20] MEDS: ARTIFICIAL TEARS (POLYVINYL ALCOHOL 1.4%) OPTH DROPS OU PRN (12:17)
[2017-05-20] MEDS ORDERED: PT OWN MED DRAWER 7, Y5N ONE (12:17)
[2017-05-20] MEDS: THIAMINE HCL 100 MG TABLET (FP) PO SCH (21:38)
[2017-05-20] MEDS: diphenhydrAMINE HCL 50 MG CAPSULE PO SCH (21:39)
[2017-05-21] MEDS: ACAMPROSATE CALCIUM 333 MG TABLET.DR PO SCH ×3 (06:35→21:31)
[2017-05-21] MEDS: CYCLOBENZAPRINE HCL 10 MG TABLET (FP) PO SCH ×3 (06:36→21:32)
[2017-05-21] MEDS: SODIUM CHLORIDE NASAL SPRAY 44 ML BOTTLE NS SCH ×2 (09:58→21:33)
[2017-05-21] MEDS: LORATADINE 10 MG TABLET PO SCH (09:58)
[2017-05-21] MEDS: PRENATAL VITAMINS W/ FOLIC ACID TABLET (FP) PO SCH (09:58)
[2017-05-21] MEDS: FLUOCINONIDE 0.05% TOP OINT (60 GM TUBE) TP SCH ×2 (09:59→21:32)
[2017-05-21] MEDS: NICOTINE 21 MG/24 HOURS TOPICAL PATCH TD SCH (09:59)
[2017-05-21] MEDS: NICOTINE POLACRILEX 2 MG GUM BUC PRN ×2 (10:00→14:50)
[2017-05-21] MEDS: ARTIFICIAL TEARS (POLYVINYL ALCOHOL 1.4%) OPTH DROPS OU PRN ×2 (14:49→21:33)
[2017-05-21] MEDS: hydrOXYzine PAMOATE 50 MG CAPSULE (FP) PO PRN (14:50)
[2017-05-21] MEDS ORDERED: PT OWN MED DRAWER 7, Y5N ONE (14:53)
[2017-05-21] MEDS: diphenhydrAMINE HCL 50 MG CAPSULE PO SCH (21:32)
[2017-05-21] MEDS: THIAMINE HCL 100 MG TABLET (FP) PO SCH (21:32)
[2017-05-21] MEDS: IBUPROFEN 400 MG TABLET (FP) PO PRN (21:34)
[2017-05-22] MEDS: ACAMPROSATE CALCIUM 333 MG TABLET.DR PO SCH ×3 (06:48→21:21)
[2017-05-22] MEDS: CYCLOBENZAPRINE HCL 10 MG TABLET (FP) PO SCH ×3 (06:49→21:21)
[2017-05-22] MEDS: LORATADINE 10 MG TABLET PO SCH (09:45)
[2017-05-22] MEDS: SODIUM CHLORIDE NASAL SPRAY 44 ML BOTTLE NS SCH ×2 (09:45→21:21)
[2017-05-22] MEDS: NICOTINE 21 MG/24 HOURS TOPICAL PATCH TD SCH (09:45)
[2017-05-22] MEDS: PRENATAL VITAMINS W/ FOLIC ACID TABLET (FP) PO SCH (09:45)
[2017-05-22] MEDS: NICOTINE POLACRILEX 2 MG GUM BUC PRN ×3 (09:46→21:23)
[2017-05-22] MEDS: FLUOCINONIDE 0.05% TOP OINT (60 GM TUBE) TP SCH ×2 (09:46→21:21)
[2017-05-22] MEDS: THIAMINE HCL 100 MG TABLET (FP) PO SCH (21:20)
[2017-05-22] MEDS: diphenhydrAMINE HCL 50 MG CAPSULE PO SCH (21:21)
[2017-05-23] MEDS: CYCLOBENZAPRINE HCL 10 MG TABLET (FP) PO SCH (06:28)
[2017-05-23] MEDS: ACAMPROSATE CALCIUM 333 MG TABLET.DR PO SCH (06:28)
[2017-05-23 07:02] VITALS: BP 115/81; PULSE 89; TEMP 98.1
[2017-05-23] MEDS ORDERED: PT OWN MED DRAWER 7, Y5N ONE (08:36)
[2017-05-23] MEDS: PRENATAL VITAMINS W/ FOLIC ACID TABLET (FP) PO SCH (09:09)
[2017-05-23] MEDS: LORATADINE 10 MG TABLET PO SCH (09:09)
[2017-05-23] MEDS: NICOTINE 21 MG/24 HOURS TOPICAL PATCH TD SCH (09:10)
[2017-05-23] MEDS: FLUOCINONIDE 0.05% TOP OINT (60 GM TUBE) TP SCH (09:10)
[2017-05-23] MEDS: SODIUM CHLORIDE NASAL SPRAY 44 ML BOTTLE NS SCH (09:10)
--- NOTE | 2017-05-23 09:37 | PN ---
Psychiatric Progress Note Vital Signs: Vital Signs Period Temp Pulse Resp BP Sys/Watts Pulse Ox Last 24 Hr 98.1 F 89 16-18 115/81 Date of Session: 05/23/17 Chief Complaint:: Discharge visit HPI: Patient addressed Alcohol,Cocaine and Cannabis dependence comorbid with Substance induced mood disorder. ROS: GERD,Dry skin dermatitis Current Medications: Active Medications Generic Name Dose Route Start Last Admin Trade Name Freq PRN Reason Stop Dose Admin Acamprosate 666 mg 05/13/17 16:00 05/23/17 06:28 Campral - PO 666 mg TID CLOVER Administration Acetaminophen 650 mg 05/01/17 12:41 05/05/17 10:16 Tylenol - PO 650 mg Q4H PRN Administration FEVER OR PAIN Al Hydroxide/Mg Hydroxide 30 ml 05/01/17 12:41 05/19/17 10:06 Mylanta Oral Suspension - PO 30 ml Q6H PRN Administration DYSPEPSIA Artificial Tears 1 drop 05/17/17 14:40 05/21/17 21:33 Artificial Tears OU 1 drop BID PRN Administration DRY EYES Colloidal Oatmeal 1 applic 05/04/17 12:31 05/14/17 17:18 Aveeno Soap - TP 1 bar DAILY PRN Administration HYGEINE Cyclobenzaprine HCl 10 mg 05/03/17 14:00 05/23/17 06:28 Flexeril - PO 10 mg TID CLOVER Administration Diphenhydramine HCl 100 mg 05/11/17 22:00 05/22/17 21:21 Benadryl - PO 100 mg HS CLOVER Administration Eucalyptus/Menthol/Phenol/Sorbitol 1 each 05/01/17 12:41 Cepastat Lozenge - MM Q4H PRN SORE THROAT Fluocinonide 1 applic 05/01/17 22:00 05/23/17 09:10 Lidex 0.05% Ointment - TP Not Given BID CLOVER Guaifenesin 10 ml 05/01/17 12:41 Robitussin Dm - PO Q6H PRN COUGH Hydroxyzine Pamoate 50 mg 05/01/17 12:41 05/21/17 14:50 Vistaril - PO 50 mg Q4H PRN Administration AGITATION Ibuprofen 400 mg 05/01/17 12:41 05/21/17 21:34 Motrin - PO 400 mg Q6H PRN Administration PAIN Loperamide HCl 4 mg 05/01/17 12:41 Imodium - PO Q6H PRN DIARRHEA Loratadine 10 mg 05/02/17 12:43 05/23/17 09:09 Claritin - PO 10 mg DAILY CLOVER Administration Magnesium Citrate 300 ml 05/20/17 07:35 05/20/17 07:58 Citroma - PO 300 ml Q48H PRN Administration CONSTIPATION Magnesium Hydroxide 30 ml 05/01/17 12:41 05/17/17 17:11 Milk Of Magnesia - PO 30 ml DAILY PRN Administration CONSTIPATION Nicotine 21 mg 05/06/17 10:00 05/23/17 09:10 Nicoderm Patch - TD Not Given DAILY CLOVER Nicotine Polacrilex 2 mg 05/05/17 15:24 05/22/17 21:23 Nicorette Gum - BUC 2 mg Q2H PRN Administration NICOTINE REPLACEMENT RX Multivit/Folic Acid/Iron 1 tab 05/02/17 10:00 05/23/17 09:09 Vitamins (Sjr) - PO 1 tab DAILY CLOVER Administration Pseudoephedrine/Triprolidine 1 combo 05/01/17 12:41 Actifed - PO TID PRN NASAL CONGESTION Sodium Chloride 2 spray 05/01/17 22:00 05/23/17 09:10 [place] Nasal [place] - NS Not Given BID CLOVER Thiamine HCl 100 mg 05/01/17 22:00 05/22/17 21:20 Vitamin B1 - PO 100 mg HS CLOVER Administration Current Side Effect: No Lab tests ordered: No Lab tests reviewed: Yes Provider note:: Patient completed this program today.She has met her treatment goals and will continue to address her issues at [facility].Patient reports finding that Campral 333 mg po 3tab X TID helps to cope with cravings for alcohol.script for 30 days provided. supportive thrapy provided focusing on relapse prevention. Patient is stable for discharge. Total face to face time:: 30 Mental Status Exam - Mental Status Exam Alert and Oriented to: Time, Place, Person Cognitive Function: Grossly Intact Patient Appearance: Well Groomed Mood: Hopeful, Euthymic Affect: Appropriate, Mood Congruent Patient Behavior: Appropriate, Cooperative Speech Pattern: Clear Voice Loudness: Normal Thought Process: Goal Oriented Thought Disorder: Not Present Hallucinations: Denies Suicidal Ideation: Denies Homicidal Ideation: Denies Insight/Judgement: Fair Sleep: Fair Appetite: Fair Muscle strength/Tone: Normal Gait/Station: Normal Psychiatric Treatment Plan - Problem List (1) GERD (gastroesophageal reflux disease) Qualifiers: Esophagitis presence: without esophagitis Qualified Code(s): K21.9 - Gastro -esophageal reflux disease without esophagitis
== END 2017-05-23 09:45 | disposition home or self-care (01) | DRG 772 ==
LOC: YASAS 11:30 → Y3E 11:31
PROVIDERS: ADMIT Psychiatry & Neurology Psychiatry; ATTEND Psychiatry & Neurology Psychiatry
PROC: HZ42ZZZ Group Counseling for Substance Abuse Treatment, Cognitive-Behavioral (ICD-10-PCS; principal; 2017-05-01)
DX: F10.20 Alcohol dependence, uncomplicated (principal); F14.20 Cocaine dependence, uncomplicated; F12.20 Cannabis dependence, uncomplicated; F19.24 Other psychoactive substance dependence with psychoactive substance-induced mood disorder; L85.3 Xerosis cutis; K21.9 Gastro-esophageal reflux disease without esophagitis